=== PATIENT | male | born 1995 | race Caucasian/White ===

== ENCOUNTER 2019-07-22 17:30 | Observation (INO) ==
[2019-07-22 18:05] LABS: Basophils % 0.3 %; Eosinophils # 0.3 K/mcL (0.0-0.6); Eosinophils % 3.2 %; Hematocrit 46.3 % (37.5-50.1); Hemoglobin 16.2 g/dL (12.9-16.9); Immature Granulocytes % 0.2 % (0-4); Immature Platelets 2.7 % (1.1-6.1); Lymphocytes # 3.9 K/mcL (0.6-4.6); Lymphocytes % 42.8 %; Mean Corpuscular Hemoglobin 33.5 pg (28.0-33.3); Mean Corpuscular Volume 95.7 fL (83.0-100.0); Monocytes # 0.6 K/mcL (0.0-1.3); Monocytes % 6.6 %; Neutrophils # 4.3 K/mcL (1.6-8.9); Platelet Count 236 K/mcL (140-400); Red Blood Count 4.84 M/mcL (4.19-5.50); Red Cell Distribution Width 12.6 % (11.5-14.5); Segmented Neutrophils % 46.9 %; White Blood Count 9.2 K/mcL (4.3-11.1)
[2019-07-22 18:31] LABS: Amphetamine Screen,Urine Negative ng/mL (Cutoff=1000); Barbiturate Screen,Urine Negative ng/mL (Cutoff=200); Benzodiazepines Screen,Urine Negative ng/mL (Cutoff=200); Cannabinoid Screen,Urine Negative ng/mL (Cutoff = 50); Cocaine Screen,Urine Negative ng/mL (Cutoff= 300); Opiate Screen,Urine Negative ng/mL (Cutoff=300); Phencyclidine Screen,Urine Negative ng/mL (Cutoff=25)
[2019-07-22 18:32] LABS: Acetaminophen < 10 mcg/mL (10-20); Alanine Aminotransferase 74 Units/L (7-52); Albumin 4.4 g/dL (3.5-5.7); Albumin/Globulin Ratio 1.7 (1.1-2.2); Alkaline Phosphatase 86 Units/L (34-104); Aspartate Amino Transferase 57 Units/L (13-39); BUN/Creatinine Ratio 19 (6-26); Bilirubin,Total 0.4 mg/dL (0.3-1.0); Blood Urea Nitrogen 19 mg/dL (6-20); Calcium 9.6 mg/dL (8.6-10.3); Carbon Dioxide 26 mEq/L (23-29); Chloride 103 mEq/L (98-107); Ethanol < 10 mg/dL (Less than 10); Globulin 2.6 g/dL (2.4-3.5); Glucose 102 mg/dL (70-105); Osmolality,Calculated 282 (280-300); Potassium 4.1 mEq/L (3.5-5.1); Sodium 135 mEq/L (136-145); eGFR For African Americans > 60 (> 60); eGFR For Non-African Americans > 60 (> 60)
[2019-07-22 18:39] LABS: Bilirubin,Urine Negative (Negative); Blood,Urine Negative (Negative); Clarity,Urine Clear (Clear); Color,Urine Yellow (Yellow); Glucose,Urine (UA) Normal (Normal); Ketones,Urine Negative (Negative); Leukocyte Esterase,Urine Negative (Negative); Nitrite,Urine Negative (Negative); Protein,Urine Negative (Neg-Trace); Specific Gravity,Urine 1.027 (1.010-1.025); Urobilinogen,Urine Normal (Normal)
[2019-07-22] MEDS ORDERED: *HR* LORazepam 2 MG/ML VIAL IM PRN (19:51)
[2019-07-22] MEDS ORDERED: Mag Hydrox/Al Hydrox/Simeth 30 ML UDC PO PRN (19:51)
[2019-07-22] MEDS ORDERED: MOM Conc 10 ML UD.LIQ PO PRN (19:51)
[2019-07-22] MEDS ORDERED: Haloperidol Lactate 5 MG/ML VIAL IM PRN (19:51)
[2019-07-22] MEDS ORDERED: Acetaminophen 325 MG TABLET PO PRN (19:51)
[2019-07-22] MEDS ORDERED: hydrOXYzine pamoate 25 MG CAPSULE PO PRN (19:51)
[2019-07-22] MEDS ORDERED: *HR* LORazepam 1 MG TABLET PO PRN (19:51)
[2019-07-22] MEDS ORDERED: Nicotine 21 MG PATCH.TD24 TD ONE (20:38)
[2019-07-22] MEDS ORDERED: Fluticasone Propionate Nasal 50 MCG/SPRAY BOTTLE NS PRN (22:02)
[2019-07-22] MEDS ORDERED: risperiDONE 1 MG TABLET PO SCH (22:15)
[2019-07-22] MEDS: Lithium Carbonate 300 MG CAPSULE PO SCH (22:56)
[2019-07-23] MEDS ORDERED: Multivit/Ca/Min/Fe/FA 1 TAB TABLET PO SCH (09:00)
[2019-07-23] MEDS ORDERED: hydrOXYzine pamoate 25 MG CAPSULE PO SCH (09:00)
[2019-07-23] MEDS ORDERED: Nicotine 21 MG PATCH.TD24 TD ONE (09:00)
[2019-07-23] MEDS: Lithium Carbonate 300 MG CAPSULE PO SCH (09:06)
[2019-07-23] MEDS ORDERED: risperiDONE 0.25 MG TABLET PO SCH (09:15)
[2019-07-23 09:42] VITALS: BP 127/85
[2019-07-23] MEDS ORDERED: risperiDONE 1 MG TABLET PO SCH (21:00)
[2019-07-23] MEDS ORDERED: Lithium Carbonate 300 MG CAPSULE PO SCH (21:00)
[2019-07-24] MEDS ORDERED: Lithium Carbonate 300 MG CAPSULE PO SCH (09:00)
== END 2019-07-23 10:30 | disposition home or self-care (01) ==
LOC: EMEROOARM 17:30 → 1ANU 17:30
PROVIDERS: ADMIT Psychiatry & Neurology Psychiatry; ATTEND Psychiatry & Neurology Psychiatry

== ENCOUNTER 2019-10-14 23:14 | Inpatient (IN) ==
[2019-10-14 23:54] LABS: Bilirubin,Urine Negative (Negative); Blood,Urine Negative (Negative); Clarity,Urine Cloudy (Clear); Color,Urine Yellow (Yellow); Glucose,Urine (UA) Normal (Normal); Ketones,Urine Negative (Negative); Leukocyte Esterase,Urine Negative (Negative); Nitrite,Urine Negative (Negative); PH,Urine 5.5 pH Units (5.0-8.0); Protein,Urine Negative (Neg-Trace); Specific Gravity,Urine 1.026 (1.010-1.025); Urobilinogen,Urine Normal (Normal)
[2019-10-14 23:56] LABS: Basophils % 0.4 %; Eosinophils # 0.2 K/mcL (0.0-0.6); Eosinophils % 2.2 %; Hemoglobin 15.1 g/dL (12.9-16.9); Immature Granulocytes % 0.5 % (0-4); Lymphocytes # 3.8 K/mcL (0.6-4.6); Lymphocytes % 38.8 %; Mean Corpuscular HGB Conc 34.3 g/dL (31.6-35.5); Mean Corpuscular Volume 96.1 fL (83.0-100.0); Mean Platelet Volume 9.7 fL (9.4-12.4); Monocytes # 0.8 K/mcL (0.0-1.3); Monocytes % 7.9 %; Neutrophils # 4.9 K/mcL (1.6-8.9); Platelet Count 298 K/mcL (140-400); Red Blood Count 4.58 M/mcL (4.19-5.50); Red Cell Distribution Width 12.6 % (11.5-14.5); Segmented Neutrophils % 50.2 %; White Blood Count 9.7 K/mcL (4.3-11.1)
[2019-10-14 23:58] LABS: Bacteria,Urine None Seen per hpf (None-Few); Hyaline Casts,Urine None Seen per lpf (None-Few); RBC,Urine 0-3 per hpf (0-3); Squamous Epithelial Cell,Urine Moderate per lpf (None-Few); WBC,Urine 0-3 per hpf (0-3)
[2019-10-15 00:05] LABS: Amphetamine Screen,Urine Negative ng/mL (Cutoff=1000); Barbiturate Screen,Urine Negative ng/mL (Cutoff=200); Benzodiazepines Screen,Urine Negative ng/mL (Cutoff=200); Cannabinoid Screen,Urine Negative ng/mL (Cutoff = 50); Cocaine Screen,Urine Negative ng/mL (Cutoff= 300); Opiate Screen,Urine Negative ng/mL (Cutoff=300); Phencyclidine Screen,Urine Negative ng/mL (Cutoff=25)
[2019-10-15 00:15] LABS: Acetaminophen < 10 mcg/mL (10-20); BUN/Creatinine Ratio 15 (6-26); Blood Urea Nitrogen 13 mg/dL (6-20); Calcium 9.9 mg/dL (8.6-10.3); Carbon Dioxide 24 mEq/L (23-29); Chloride 103 mEq/L (98-107); Chol/HDL Ratio 5.9 (0-4.9); Cholesterol 177 mg/dL (< 200); Ethanol < 10 mg/dL (Less than 10); Glucose 99 mg/dL (70-105); HDL Cholesterol 30 mg/dL (40-59); LDL Cholesterol,Calculated 110 mg/dL (0-99); Osmolality,Calculated 280 (280-300); Potassium 3.7 mEq/L (3.5-5.1); Salicylate < 2.5 mg/dL (15.0-30.0); Sodium 135 mEq/L (136-145); Triglycerides 187 mg/dL (< 150); eGFR For African Americans > 60 (> 60); eGFR For Non-African Americans > 60 (> 60)
[2019-10-15 02:15] LABS: Estimated Average Glucose 97 mg/dl
[2019-10-15] MEDS ORDERED: traZODone 50 MG TABLET PO PRN (03:13)
[2019-10-15] MEDS ORDERED: *HR* LORazepam 1 MG TABLET PO PRN (03:13)
[2019-10-15] MEDS ORDERED: Haloperidol Lactate 5 MG/ML VIAL IM PRN (03:13)
[2019-10-15] MEDS ORDERED: Ibuprofen 400 MG TABLET PO PRN (03:13)
[2019-10-15] MEDS ORDERED: *HR* LORazepam 2 MG/ML VIAL IM PRN (03:13)
[2019-10-15] MEDS ORDERED: MOM Conc 10 ML UD.LIQ PO PRN (03:13)
[2019-10-15] MEDS ORDERED: Mag Hydrox/Al Hydrox/Simeth 30 ML UDC PO PRN (03:13)
[2019-10-15] MEDS ORDERED: hydrOXYzine pamoate 25 MG CAPSULE PO PRN ×2 (03:13→18:40)
[2019-10-15] MEDS: Nicotine 21 MG PATCH.TD24 TD SCH ×2 (12:35→16:29)
[2019-10-15] MEDS ORDERED: QUEtiapine Fumarate 100 MG TABLET PO SCH (21:00)
[2019-10-15] MEDS: Multivit/Ca/Min/Fe/FA 1 TAB TABLET PO SCH (23:55)
[2019-10-16] MEDS: Nicotine 21 MG PATCH.TD24 TD SCH (08:22)
[2019-10-16] MEDS: Multivit/Ca/Min/Fe/FA 1 TAB TABLET PO SCH (08:23)
[2019-10-16 08:28] LABS: Alanine Aminotransferase 72 Units/L (7-52); Albumin 4.6 g/dL (3.5-5.7); Albumin/Globulin Ratio 1.6 (1.1-2.2); Alkaline Phosphatase 100 Units/L (34-104); Aspartate Amino Transferase 35 Units/L (13-39); BUN/Creatinine Ratio 13 (6-26); Bilirubin,Total 0.7 mg/dL (0.3-1.0); Blood Urea Nitrogen 12 mg/dL (6-20); Calcium 9.6 mg/dL (8.6-10.3); Carbon Dioxide 28 mEq/L (23-29); Chloride 102 mEq/L (98-107); Globulin 2.8 g/dL (2.4-3.5); Glucose 94 mg/dL (70-105); Osmolality,Calculated 286 (280-300); Potassium 4.2 mEq/L (3.5-5.1); Sodium 138 mEq/L (136-145); Total Protein 7.4 g/dL (6.4-8.9); eGFR For African Americans > 60 (> 60); eGFR For Non-African Americans > 60 (> 60)
[2019-10-16 09:00] VITALS: BP 127/84
[2019-10-16] MEDS ORDERED: FLU Vac QV 19-20 (6Month+)/PF 0.5 ML SYRINGE IM ONE (10:32)
== END 2019-10-16 11:40 | disposition other institution (70) | DRG 753 ==
LOC: 1ANU 23:14 → EMEROOARM 23:14 → 1ANU 10-15 03:15
PROVIDERS: ADMIT Psychiatry & Neurology Psychiatry; ATTEND Psychiatry & Neurology Psychiatry